=== PATIENT | male | born 1970 | race Caucasian/White ===

== ENCOUNTER 2019-07-07 22:58 | Emergency (ER) | payer SELFPAY ==
[2019-07-07] MEDS ORDERED: NS 0.9% 1000 ML** 1,000 ML IV ONE (23:25)
--- NOTE | 2019-07-07 23:26 | ED ---
Lower Extremity - HPI Summary HPI Summary: Pt is a 48 y/o M presenting to the ED with a chief complaint of R thigh pain. Pt states tonight around 2200 he began having sudden onset mid anterior thigh pain every time he bent his leg slightly. He describes the pain as stabbing. He also has scratches all over his legs below his knees, which he states is a habit. Per pts , he did not remember where he was going or why he was in the car on the way here. - History of Current Complaint Chief Complaint: EDExtremityLower Stated Complaint: RIGHT LEG PAIN,CONFUSION PER Time Seen by Provider: 07/07/19 23:14 Hx Obtained From: Patient Mechanism Of Injury: Unknown Onset of Pain: Hours Onset/Duration: Still Present Severity Initially: Moderate Severity Currently: Moderate Pain Intensity: 0 Timing: Constant, Lasting Hours Location: Is Discrete @ - R anterior mid thigh Character Of Pain: Sharp Associated Signs And Symptoms: Positive: Other - scratches all below knees Aggravating Factor(s): Other - bending leg Alleviating Factor(s): Nothing - Allergies/Home Medications Allergies/Adverse Reactions: Allergies Allergy/AdvReac Type Severity Reaction Status Date / Time onions Allergy Unknown Uncoded 07/07/19 23:01 Reaction Details PMH/Surg Hx/FS Hx/Imm Hx Previously Healthy: Yes Endocrine/Hematology History: Denies: Hx Diabetes Cardiovascular History: Denies: Hx Hypercholesterolemia, Hx Hypertension Respiratory History: Reports: Hx Pneumonia Denies: Hx Asthma History: Denies: Hx Renal Disease - Surgical History Surgery Procedure, Year, and Place: Hiatal hernia Infectious Disease History: No Infectious Disease History: Denies: Traveled Outside the [place] in Last 30 Days - Family History Known Family History: Positive: Diabetes, Other - mother - blood clots Negative: Cardiac Disease, Hypertension - Social History Alcohol Use: None Hx Substance Use: No Substance Use Type: Reports: None Hx Tobacco Use: Yes Smoking Status (MU): Current Every Day Smoker Review of Systems Positive: Myalgia Positive: Other - scratches all over bilateral knees/calves All Other Systems Reviewed And Are Negative: Yes Physical Exam - Summary Physical Exam Summary: Appearance: Well-appearing, Well-nourished, Non toxic. No fever is noted. Skin: Warm, dry, no obvious rash Eyes: sclera anicteric, no conjunctival pallor ENT: mucous membranes moist Neck: deferred Respiratory: No signs of respiratory distress Cardiovascular: Appears well perfused, pulses are nml Abdomen: deferred Musculoskeletal: R anterior thigh marked tenderness over the quadriceps, most pronounced in the middle of the muscle belly. However there is no surface erythema, no obvious swelling, crepitus or induration, nor any abnormal warmth. The patient cannot flex his knee due to severe pain with stretching the quadriceps. Neurological: Awake and alert, mentation is normal, speech is fluent and appropriate Psychiatric: affect is normal, does not appear anxious or depressed Triage Information Reviewed: Yes Vital Signs On Initial Exam: Initial Vitals Temp Pulse Resp BP Pulse Ox 99.5 F 76 18 124/102 99 07/07/19 22:59 07/07/19 22:59 07/07/19 22:59 07/07/19 22:59 07/07/19 22:59 Vital Signs Reviewed: Yes Procedures - Sedation Patient Received Moderate/Deep Sedation with Procedure: No Diagnostics - Vital Signs Vital Signs Temp Pulse Resp BP Pulse Ox 07/07/19 22:59 99.5 F 76 18 124/102 99 - Laboratory Result Diagrams: 07/07/19 23:42 07/07/19 23:42 Lab Statement: Any lab studies that have been ordered have been reviewed, and results considered in the medical decision making process. - CT Lower extremity CT CT Interpretation Completed By: Radiologist Summary of CT Findings: Bilateral fat containing inguinal hernias. ED physician has reviewed this report. Lower Extremity Course/Dx - Course Course Of Treatment: 48 y/o M presents to [facility] with R middle anterior thigh pain initially onset around 2200 tonight. He describes it as stabbing pain. Also has scratches below his knees that he states is a habit, and states he forgot where he was going or why on the way here. On exam, R anterior thigh has marked tenderness over the quadriceps, most pronounced in the middle of the muscle belly. In the differential of acute, nontraumatic pain in the soft tissue of the lower extremity is infections such as necrotizing fasciitis. I have rechecked him a few times over the course of his visit thus far and the physical exam has not developed, WBC and CRP are normal, and CT of the lower extremity is negative for any inflammatory changes or gas about the fascia. Will continue to monitor, if no progression plan on discharge with symptomatic care. Lower Extremity CT shows: Bilateral fat containing inguinal hernias. Pt will be d/c'ed with dx of leg pain. He is stable and agreeable with this plan. - Diagnoses Provider Diagnoses: Leg pain Discharge ED - Sign-Out/Discharge Documenting (check all that apply): Patient Departure - Discharge Plan Condition: Good Disposition: HOME Prescriptions: oxyCODONE/Acetamin 5/325 MG* [Percocet 5/325 TAB*] 1 tab PO Q4H PRN #10 tab MDD 6 PRN Reason: Pain - Severe Patient Education Materials: Leg Pain (ED) Referrals: Dash ROSE,Tremayne Kilgore [Primary Care Provider] - 3 Days - Billing Disposition and Condition Condition: GOOD Disposition: Home - Attestation Statements Document Initiated by Mildred: Yes Documenting Scribe: Bhargavi Booth Provider For Whom Mildred is Documenting (Include Credential): Abhishek Vaz MD. Scribe Attestation: Bhargavi Canales scribed for Abhishek Vaz MD. on 07/08/19 at 0548. Scribe Documentation Reviewed: Yes Provider Attestation: The documentation as recorded by the scribe, Bhargavi Booth accurately reflects the service I personally performed and the decisions made by Abhishek cole MD. Status of Scribe Document: Viewed
[2019-07-07] MEDS ORDERED: Ketorolac INJ* 30 MG/ML 1 ML VIAL IV PUSH ONE (23:28)
[2019-07-07 23:48] LABS: Hematocrit 47 % (42-52); Hemoglobin 16.3 g/dL (14.0-18.0); Mean Corpuscular HGB Conc 35 g/dL (31-36); Mean Corpuscular Hemoglobin 32 pg (27-31); Mean Corpuscular Volume 91 fL (80-94); Mean Platelet Volume 10.3 fL (7.4-10.4); Platelet Count 146 10^3/uL (150-450); Red Blood Count 5.17 10^6 /uL (4.18-5.48); Red Cell Distribution Width 13 % (10-15); White Blood Count 6.8 10^3/uL (3.5-10.8)
[2019-07-08 00:05] LABS: Albumin 4.3 g/dL (3.2-5.2); Albumin/Globulin Ratio 1.5 (1-3); BUN/Creatinine Ratio 8.2 (8-20); C Reactive Protein 1.41 mg/L (<8.01); Calcium 9.2 mg/dL (8.6-10.3); EGFR African American 61.8 (>60); EGFR Non-African American 51.1 (>60); Globulin 2.8 g/dL (2-4); Potassium 4.3 mmol/L (3.5-5.0); Total Bilirubin 0.6 mg/dL (0.2-1.0); Total Protein 7.1 g/dL (6.4-8.9)
[2019-07-08 00:24] LABS: Platelet Morphology Large
[2019-07-08 00:25] LABS: ABS Eosinophils 0.1 10^3/ul (0-0.6); ABS Lymphocytes 1.5 10^3/ul (1.0-4.8); ABS Monocytes 0.5 10^3/ul (0-0.8); ABS Neutrophils 4.6 10^3/ul (1.5-7.7); Eosinophil % 1.8 %; Lymphocyte % 21.9 %; Nucleated Red Blood Cells % 0.1
[2019-07-08] MEDS ORDERED: Iodixanol* (CONTRAST) 320 MG/ML 100 ML SDV IV ONE (00:43)
[2019-07-08 01:56] LABS: Urine Appearance Clear; Urine Bilirubin Negative (Negative); Urine Blood Negative (Negative); Urine Color Yellow; Urine Glucose Negative (Negative); Urine Ketones Negative (Negative); Urine Nitrite Negative (Negative); Urine Protein Negative (Negative); Urine Specific Gravity 1.024 (1.010-1.030); Urine Urobilinogen Negative (Negative)
[2019-07-08 02:48] VITALS: BP 127/85
== END 2019-07-08 02:47 | disposition home or self-care (01) ==
LOC: ED 22:58
DX: M79.651 Pain in right thigh (principal); K40.20 Bilateral inguinal hernia, without obstruction or gangrene, not specified as recurrent; R41.0 Disorientation, unspecified; Z91.018 Allergy to other foods; F17.200 Nicotine dependence, unspecified, uncomplicated
CPT/HCPCS: 36415; 80053; 81003; 83605; 85025; 85060; 86140; 96361; 96374; 99283; J1885; Q9967